=== PATIENT | female | born 1940 | race Hispanic/Latino ===

== ENCOUNTER 2020-09-24 18:59 | Observation (INO) | payer MEDICARE, OTHER ==
[~2020-09-24] VITALS: Ht 157.5 cm; Wt 52.2 kg
[2020-09-24] MEDS ORDERED: ACETAMINOPHEN 325 MG SUPP PR ONE (19:15)
[2020-09-24] MEDS ORDERED: CEFTRIAXONE SOD 1 GM in SODIUM CHLORIDE 0.9% 50ML 50 ML IV ONE (19:15)
[2020-09-24] MEDS ORDERED: CEFTRIAXONE SOD 1 GM/50 ML BAG IV ONE (19:15)
[2020-09-24 19:23] LABS: BASOPHILS % 0.2 % (0.0-1.0); HEMATOCRIT 35.1 % (34.2-44.1); HEMOGLOBIN 10.7 g/dL (12.0-16.0); LYMPHOCYTES # (AUTO) 0.8 (1.0-3.2); LYMPHOCYTES % 7.7 % (18.0-39.1); MEAN CORPUSCULAR HEMOGLOBIN 28.2 pg (28-32); MEAN CORPUSCULAR HGB CONC 30.5 g/dL (31-35); MEAN CORPUSCULAR VOLUME 92.6 fL (81-99); MONOCYTES # (AUTO) 0.8 (0.2-0.8); NEUTROPHILS # (AUTO) 8.2 (2.1-6.9); NEUTROPHILS % 83.4 % (38.7-80.0); PLATELET COUNT 132 x10e3/uL (140-360); RED BLOOD COUNT 3.79 x10e6/uL (3.6-5.1); RED CELL DISTRIBUTION WIDTH 17.5 % (11.7-14.4)
[2020-09-24 19:42] LABS: ALBUMIN/GLOBULIN RATIO 0.7 (0.8-2.0); ANION GAP 14.8 mmol/L (8-16); CALCIUM 7.2 mg/dL (8.4-10.2); CREATININE, SERUM 1.18 mg/dL (0.57-1.11)
[2020-09-24 19:48] LABS: CREATINE KINASE MB 10.4 ng/mL (0-5.0)
[2020-09-24] MEDS ORDERED: POTASSIUM CHLORIDE 20MEQ/100ML 100 ML IV STA (19:58)
[2020-09-24 19:59] LABS: POTASSIUM 2.8 mmol/L (3.5-5.1)
[2020-09-24] MEDS ORDERED: CEFTRIAXONE SOD 1 GM/50 ML BAG IV SCH (21:45)
[2020-09-24] MEDS ORDERED: SOD CHL 0.45%/POT CHL 20MEQ 1,000 ML IV ONE (21:45)
[2020-09-24 22:05] LABS: CLARITY,URINE CLEAR (CLEAR); COLOR,URINE YELLOW (YELLOW)
[2020-09-24 22:06] LABS: KETONES,URINE 2+ (NEGATIVE); LEUKOCYTE ESTERASE ,URINE NEGATIVE (NEGATIVE); NITRITE,URINE NEGATIVE (NEGATIVE); PROTEIN,URINE DIPSTICK 1+ (NEGATIVE); URINE UROBILINOGEN 0.2 mg/dL (0.2 - 1)
[2020-09-24 22:07] LABS: BACTERIA,URINE FEW /HPF; EPITHELIAL CELLS,URINE MODERATE /LPF
[2020-09-24 22:14] LABS: INR 1.32; PROTHROMBIN TIME 17.1 seconds (11.9-14.5)
[2020-09-24 22:15] LABS: PARTIAL THROMBOPLASTIN TIME 31.2 seconds (23.8-35.5)
[2020-09-24] MEDS: CEFTRIAXONE SOD 1 GM in SODIUM CHLORIDE 0.9% 50ML 50 ML IV SCH (22:27)
[2020-09-24] MEDS: AZITHROMYCIN 500MG/NS 250 ML 250 ML IV SCH (22:58)
[2020-09-24] MEDS ORDERED: ACETAMINOPHEN 325 MG SUPP PR PRN (23:45)
[2020-09-25] VITALS (10 sets, daily range): BP systolic 131–141; BP diastolic 42–87
[2020-09-25 06:24] LABS: BASOPHILS % 0.3 % (0.0-1.0); HEMATOCRIT 35.4 % (34.2-44.1); HEMOGLOBIN 10.8 g/dL (12.0-16.0); LYMPHOCYTES % 9.7 % (18.0-39.1); MEAN CORPUSCULAR HEMOGLOBIN 28.4 pg (28-32); MEAN CORPUSCULAR HGB CONC 30.5 g/dL (31-35); MEAN CORPUSCULAR VOLUME 93.2 fL (81-99); MONOCYTES % 9.2 % (4.4-11.3); NEUTROPHILS # (AUTO) 8.6 (2.1-6.9); NEUTROPHILS % 79.9 % (38.7-80.0); PLATELET COUNT 104 x10e3/uL (140-360); RED CELL DISTRIBUTION WIDTH 17.8 % (11.7-14.4)
[2020-09-25] MEDS: ONDANSETRON HCL INJ 2MG/ML 2ML 2 MG/ML VIAL IV PRN ×2 (06:35→10:30)
[2020-09-25 06:53] LABS: CREATINE KINASE MB 4.6 ng/mL (0-5.0)
[2020-09-25 07:20] LABS: ALBUMIN/GLOBULIN RATIO 0.8 (0.8-2.0); ANION GAP 16.2 mmol/L (8-16); CALCIUM 7.2 mg/dL (8.4-10.2); CREATININE, SERUM 1.12 mg/dL (0.57-1.11); POTASSIUM 3.2 mmol/L (3.5-5.1)
[2020-09-25 14:25] LABS: CREATINE KINASE MB 4.2 ng/mL (0-5.0)
[2020-09-25] MEDS ORDERED: POTASSIUM CHLORIDE 10MEQ/100ML 100 ML IV ONE (19:00)
[2020-09-25] MEDS ORDERED: CEFTRIAXONE SOD 1 GM VIAL ONE (20:17)
[2020-09-25] MEDS ORDERED: SODIUM CHLORIDE 0.9% 250ML 250 ML ONE (20:18)
[2020-09-25] MEDS: AZITHROMYCIN 500MG/NS 250 ML 250 ML IV SCH (21:45)
[2020-09-25] MEDS: CEFTRIAXONE SOD 1 GM in SODIUM CHLORIDE 0.9% 50ML 50 ML IV SCH (23:06)
[2020-09-26 00:01] VITALS: BP 132/56
[2020-09-26] MEDS ORDERED: PANTOPRAZOLE 40 MG 10ML VIAL IV STA (01:08)
[2020-09-26] MEDS ORDERED: OCTREOTIDE ACETATE 0.05 MG/ML AMP IV STA (01:09)
[2020-09-26] MEDS ORDERED: OCTREOTIDE ACETATE 600 MCG in SODIUM CHLORIDE 0.9% 250ML 300 ML IV SCH (01:15)
[2020-09-26] MEDS ORDERED: SODIUM CHLORIDE 0.9% 50ML 50 ML ONE (02:19)
[2020-09-26 04:24] VITALS: BP 111/66
[2020-09-26] MEDS ORDERED: PANTOPRAZOLE 40 MG 10ML VIAL IV SCH ×2 (05:00→09:00)
[2020-09-26 05:21] LABS: BASOPHILS % 0.1 % (0.0-1.0); HEMATOCRIT 31.2 % (34.2-44.1); HEMOGLOBIN 9.3 g/dL (12.0-16.0); LYMPHOCYTES # (AUTO) 0.7 (1.0-3.2); LYMPHOCYTES % 6.6 % (18.0-39.1); MEAN CORPUSCULAR HEMOGLOBIN 28.7 pg (28-32); MEAN CORPUSCULAR HGB CONC 29.8 g/dL (31-35); MEAN CORPUSCULAR VOLUME 96.3 fL (81-99); MONOCYTES # (AUTO) 0.7 (0.2-0.8); MONOCYTES % 6.6 % (4.4-11.3); NEUTROPHILS # (AUTO) 8.8 (2.1-6.9); NEUTROPHILS % 86.1 % (38.7-80.0); PLATELET COUNT 99 x10e3/uL (140-360); RED BLOOD COUNT 3.24 x10e6/uL (3.6-5.1); RED CELL DISTRIBUTION WIDTH 18.1 % (11.7-14.4)
[2020-09-26 05:37] LABS: ANION GAP 12.5 mmol/L (8-16); CALCIUM 7.1 mg/dL (8.4-10.2); CREATININE, SERUM 1.18 mg/dL (0.57-1.11); POTASSIUM 3.5 mmol/L (3.5-5.1)
[2020-09-26 06:10] LABS: % IRON SATURATION 13 % (15-50); IRON 35 ug/dL (50-170); TOTAL IRON BINDING CAPACITY 277 ug/dL (261-478); TRANSFERRIN 198 mg/dL (180-382)
[2020-09-26 08:00] VITALS: BP 135/52
[2020-09-26 08:29] VITALS: BP 135/52
[2020-09-26 12:00] VITALS: BP 124/52
[2020-09-27] MEDS ORDERED: BALSAM PERU/CASTOR OIL 60 GM OINT...G. TP SCH (09:00)
== END 2020-09-26 13:23 | disposition hospice, home (50) ==
LOC: ER 22:49 → ERHOLD 22:57 → MED/SURG2 23:15
PROVIDERS: ADMIT Internal Medicine; ATTEND Internal Medicine
DX: J69.0 Pneumonitis due to inhalation of food and vomit (principal); K74.60 Unspecified cirrhosis of liver; I21.A1 Myocardial infarction type 2; D63.8 Anemia in other chronic diseases classified elsewhere; N17.9 Acute kidney failure, unspecified; E87.6 Hypokalemia; Z20.822 Contact with and (suspected) exposure to COVID-19
CPT/HCPCS: 36415 ×3; 70450; 71045; 74176; 80048; 80053 ×2; 81001; 82140; 82550 ×2; 82553 ×2; 82607; 82746; 83540; 83605; 84466; 84484 ×2; 85025 ×3; 85045; 85610; 85730; 87040; 93005; 96360; 96361 ×2; 99251; 99285; C9113; G0378 ×3; J0456 ×2; J0696 ×2; J2353; J2354; J2405; J3480 ×2; J7050 ×2; U0002